=== PATIENT | female | born 1980 | race Two or more races ===

== ENCOUNTER 2017-06-03 04:55 | Emergency (ER) | payer SELFPAY ==
[~2017-06-03] VITALS: Ht 154.9 cm; Wt 87.0 kg
[2017-06-03] MEDS ORDERED: ONDANSETRON 2MG/ML, 2ML ONE (05:47)
[2017-06-03] MEDS ORDERED: MORPHINE SULFATE 4 MG/ML, 1ML ONE ×2 (05:47→07:02)
[2017-06-03] MEDS ORDERED: ASPIRIN 81 MG TABLET CHEW ONE (05:47)
[2017-06-03] MEDS ORDERED: MAALOX/HYOSCYAMINE/LIDOCAINE 45 ML BTL ONE (05:47)
[2017-06-03] MEDS: MORPHINE SULFATE 4 MG/ML, 1ML IVPush PRN ×2 (05:49→07:04)
[2017-06-03] MEDS ORDERED: SODIUM CHLORIDE 0.9% 1,000ML IVBOLUS ONE (06:00)
[2017-06-03] MEDS ORDERED: MAALOX/HYOSCYAMINE/LIDOCAINE 45 ML BTL PO ONE (06:00)
[2017-06-03] MEDS ORDERED: PLEASE ENTER ALLERGIES MC SCH ×2 (06:00)
[2017-06-03] MEDS ORDERED: ONDANSETRON 2MG/ML, 2ML IVPush ONE (06:00)
[2017-06-03] MEDS ORDERED: ASPIRIN 81 MG TABLET CHEW PO ONE (06:00)
[2017-06-03] MEDS ORDERED: SODIUM CHLORIDE FLUSH 10ML SYR IVF ONE (06:00)
[2017-06-03 06:01] LABS: HEMOGLOBIN 13.4 g/dL (11.7-16.4); WHITE BLOOD COUNT 8.6 x10^3/uL (3.4-10)
[2017-06-03 06:04] LABS: ASPARTATE AMINO TRANSFERASE 11 U/L (15-37); BLOOD UREA NITROGEN 6 mg/dL (7-18)
[2017-06-03 06:11] LABS: IS PT STATUS REG ER OR PRE ER? YES
[2017-06-03 08:44] VITALS: BP 106/70
== END 2017-06-03 08:46 | disposition home or self-care (01) ==
LOC: ED 05:10
DX: R10.84 Generalized abdominal pain (principal); R07.89 Other chest pain; M54.5 Low back pain; M94.0 Chondrocostal junction syndrome [Tietze]; R00.1 Bradycardia, unspecified
CPT/HCPCS: 36415; 71020; 80053; 81001; 83690; 84484; 84703; 85025; 85379; 93005; 96361; 96374; 96375; 96376; 99285; J2405; J7030